=== PATIENT | male | born 1955 | race Caucasian/White ===

== ENCOUNTER → 2020-03-14 11:17 | Outpatient (CLI) | payer OTHER, MEDICARE, SELFPAY ==
[2020-03-14 12:25] LABS: COVID19 -Nasal RAPID Negative (Negative)
== END ==
PROVIDERS: Visit Provider Nurse Practitioner
DX: Z20.822 Contact with and (suspected) exposure to COVID-19 (principal)
CPT/HCPCS: 87635

== ENCOUNTER → 2020-03-16 10:31 | Outpatient (CLI) | payer OTHER, SELFPAY ==
--- NOTE | 2020-03-16 10:41 | DI.NM.S_ITS ---
PROCEDURE: NM SAVITA PERF SPECT REST & STR Rest and exercise myocardial perfusion SPECT with gated imaging and ejection fraction RADIOPHARMACEUTICAL: 24.3 mCi Tc-99m sestamibi IV at rest and 26.3 mCi Tc-99m sestamibi IV at peak exercise. A two day-protocol was performed. INDICATIONS: Atherosclerotic heart disease of [place] coronary TECHNIQUE: Radiopharmaceutical was injected at peak stress test, and also at rest. SPECT images were obtained. SPECT myocardial perfusion images were displayed in short axis, horizontal long axis, and vertical long axis views. Gated images were reviewed using [employer] software. COMPARISON: None. CARDIAC STRESS: A standard Rafael treadmill exercise tolerance test was performed by the patient under the supervision of an attending staff. The patient exercised for 4 minutes and 7 seconds; functional aerobic impairment (ROBERTO) is +46%. Hemodynamic data: There is normal blood pressure and heart rate response to exercise stress. Patient achieved 86% of maximum predicted heart rate at peak exercise. Symptoms: Patient denied chest pain during exercise. EKG: No diagnostic EKG changes of ischemia; frequent PVCs with exercise. FINDINGS: Raw data: There is good myocardial labeling by radiotracer. No significant motion artifacts. Jqdn-fj-ktzpj ratio is 0.32 (normal is less than 0.38 for sestamibi tracer, and less than 0.50 for thallium tracer). Left ventricle function: Gated images demonstrate normal left ventricle wall thickening. No segmental wall motion abnormality. No transient ischemic dilation; TID is 1.05 (normal less than 1.3). The left ventricle resting end-diastolic volume is 110 mL. Left ventricle stress ejection fraction is 70%; normal values are above 45%. Myocardial perfusion: There is normal distribution of activity in the left and right ventricular myocardium. No fixed or reversible perfusion defects. IMPRESSION: Low risk, normal treadmill nuclear stress test. 1) No perfusion evidence of ischemia or infarction. 2) Normal left ventricular size, wall motion, and systolic function (EF post stress 70%). 3) No ECG evidence of ischemia. Frequent PVCs with exercise. 4) No angina during the stuyd. 5) Significantly reduced exercise tolerance (4.6 METs, ROBERTO +46%). Target heart rate achieved. Appropriate BP response to exercise. 6) No prior nuclear stress test available for comparison. Dictated by: Kika Stratton MD on 03/17/2020 at 13:54 Approved by: Kika Stratton MD on 03/17/2020 at 13:57
--- NOTE | 2020-03-16 11:47 | PM.TREADMILL ---
Cardiac Stress Test Report Referral & Results Date Patient Seen: 03/16/20 Time Patient Seen: 11:47 Requesting provider: David Cates Indication: Atherosclerotic heart disease Rest ECG: sinus rhythm Procedure Note: Standard Rafael protocol, 3:39, 4.6 METS Reduced exercise capacity, +46% Normal hemodynamic response to exercise No chest pain or anginal symptoms Occasional PVCs No significant ST changes at peak exercise Impression: normal exercise stress test Please note: Actual ECG tracings can be found in the PACS system.
== END ==
PROVIDERS: Referring Provider Nurse Practitioner; Visit Provider Nurse Practitioner
DX: I25.10 Atherosclerotic heart disease of native coronary artery without angina pectoris (principal)
CPT/HCPCS: 78452; 93017; A9502

== ENCOUNTER 2024-08-21 21:06 | Emergency (ER) | payer OTHER, SELFPAY ==
[2024-08-21 21:13] VITALS: BP 179/85; PULSE 83; RESP 19; TEMP 36.6; O2SAT 96; BMI 47.5
--- NOTE | 2024-08-21 21:25 | DI.RAD.S_ITS ---
PROCEDURE: XR ANKLE LT MIN 3V INDICATIONS: fell, pain TECHNIQUE: 3 views of the ankle were acquired. COMPARISON: None. FINDINGS: Bones: No fractures or dislocations. Ankle mortise is normally aligned. No suspicious bony lesions. Plantar calcaneal enthesophyte. Degenerative changes of the dorsal midfoot and ankle. Soft tissues: No tibiotalar joint effusion. Achilles tendon appears normal. Mild soft tissue swelling overlying the ankle. IMPRESSION: Left ankle without acute fracture or dislocation. If there is persistent clinical concern for occult fracture given adequate mechanism of injury, consider repeat imaging in 10-14 days. Immobilization as clinically indicated. Dictated by: Yobany Hagan M.D. on 08/21/2024 at 23:24 Approved by: Yobany Hagan M.D. on 08/21/2024 at 23:25
--- NOTE | 2024-08-21 21:25 | DI.RAD.S_ITS ---
PROCEDURE: XR KNEE LT 3V INDICATIONS: fell, pain TECHNIQUE: 3 views of the knee were acquired. COMPARISON: None. FINDINGS: Bones: No acute fractures or dislocations. No suspicious bony lesions. Moderate tricompartmental osteoarthrosis of the left knee. Soft tissues: No significant joint effusion. No suspicious soft tissue calcifications. IMPRESSION: No acute bony abnormality or significant effusion. Moderate tricompartmental osteoarthrosis of the left knee. If there are persistent symptoms or clinical suspicion for pathology, then repeat radiographs or advanced imaging (CT or MRI) may be considered for further evaluation. Dictated by: Yobany Hagan M.D. on 08/21/2024 at 23:25 Approved by: Yobany Hagan M.D. on 08/21/2024 at 23:26
[2024-08-22 01:00] VITALS: BP 155/74; PULSE 73; RESP 18; O2SAT 97
--- NOTE | 2024-08-22 01:36 | ED.LOWEXIN ---
HPI - Extremity Injury (Lower) General Chief Complaint: Extremity Injury, Lower Stated Complaint: Fall; L Knee Time Seen by Provider: 08/22/24 01:01 Source: patient and family Mode of arrival: Wheelchair History of Present Illness HPI Narrative: 69-year-old gentleman with a history of diabetes, hypertension, coronary artery disease, anticoagulation, hyperlipidemia, bipolar disorder stepped off high step landing on his left foot with twisting turning type injury to the left knee acute pain and then instability sensation like it would no longer allow him to stand. He has a minor tenderness to the left ankle. He did not actually fall is not complaining of any additional difficulties Related Data Allergies Allergy/AdvReac Type Severity Reaction Status Date / Time Cephalosporins Allergy Severe Anaphylaxis Verified 08/21/24 21:16 promethazine (From Phenergan) Allergy Intermediate ITCHING Verified 08/21/24 21:16 Review of Systems Review of Systems Narrative: Pertinent positive and negative findings as per HPI Patient History Medical History (Updated 08/22/24 @ 01:54 by Macrina Diaz MD) Anticoagulated Hyperlipidemia Diabetes Bipolar disorder Hypertension Smoking Status: Never smoker Exam Initial Vital Signs Initial Vital Signs: Vital Signs Temperature 97.9 F 08/21/24 21:13 Pulse Rate 83 08/21/24 21:13 Respiratory Rate 19 08/21/24 21:13 Blood Pressure 179/85 H 08/21/24 21:13 Pulse Oximetry 96 08/21/24 21:13 Oxygen Delivery Method Room Air 08/21/24 21:13 General: Alert appropriate in no acute distress Respiratory: Able to speak in full sentences, no obvious respiratory distress Skin: No obvious rashes, warm and dry Neurologic: Grossly intact no obvious asymmetries or abnormalities Psych: appropriate insight and affect, cooperative Extremity: Left knee is examined. He has a mild effusion no abrasions or contusions. He has some tenderness along the posterior lateral joint line. No patellar tenderness, no tenderness with anterior cruciate or posterior cruciate testing. No lateral ligamentous pain. Course Orders Ordered: ED Orders 08/21/24 21:25 XR ankle LT min 3V Stat XR knee LT 3V Stat Discontinued Medications Acetaminophen (Acetaminophen 325 Mg Tablet) 975 mg PO NOW ONE Stop: 08/22/24 01:45 Vital Signs Vital signs: Vital Signs - 8 hr 08/21/24 21:13 08/22/24 01:00 Temperature 97.9 F Pulse Rate 83 73 Respiratory Rate 19 18 Blood Pressure 179/85 H 155/74 H Pulse Oximetry 96 97 Oxygen Delivery Method Room Air Room Air MDM - Extremity Injury (Lower) MDM Narrative Medical decision making narrative: CC: Acute knee pain Complicating co-morbidities: Diabetes, hypertension, hyperlipidemia, BMI of 47, bipolar disorder, anticoagulated Data collected from: patient, Medical records reviewed: All care is through [facility], no records are available Differential considered: Fracture, internal derangement of the knee, ligamentous tear, sprain Exam documented above, pertinent findings include: Knee exam has minimal pain to palpation or manipulation mostly along the posterior joint line. Small amount of effusion however significant sense of instability and inability to bear weight. He does not have any significant tenderness over the tibial tubercle to suggest an occult tibial plateau fracture. Left ankle is no longer tender nor swollen Imaging studies independently reviewed: Images of the left knee show no acute bony injury X-ray of the left ankle shows no acute bony injury Treatments: Tylenol Long-leg knee immobilizer is placed by nursing staff. He is neurovascularly intact pre and post placement. With the stabilization his pain is reduced in his stability is more confident. He is also given a walker with instructions in use Discussion: 69-year-old gentleman stepped wrong acute knee pain feels that it is unstable unable to bear weight. Workup is minimally revealing. Possibility of significant ligamentous or meniscal injury is high. No bony abnormalities. He is placed in a knee immobilizer, given a walker . With his baseline instability crutches were going to increase his risk for fall. He declined any narcotic pain medication stated he had a couple of oxycodone at home from a previous dental procedure. He prefers Tylenol alone. We will have him follow up with his primary care physician next week. If he is still having significant pain and instability he likely will benefit from an MRI and orthopedic consultation. Findings reviewed with the patient. There was no indication for additional imaging or hospitalization today and he will be discharged Discharge Plan Departure Patient Disposition: Home Clinical Impression: Injury of knee, left Qualifiers: Encounter type: initial encounter Qualified Code(s): S89.92XA - Unspecified injury of left lower leg, initial encounter Instructions: DI for Knee Sprain, DI for Meniscal Tear Activity Restrictions/Additional Instructions: Thank you for coming in today With the instability and inability to bear weight you clearly have injured her knee. Fortunately I am not seeing any fractures and you do not need to stay in the hospital. I have given you a knee immobilizer and suggested using a walker for stability. Please schedule an appointment with your primary care provider next week. Once the swelling has gone down a bit we can reassess the stability and pain. I suspect you are going to need an outpatient MRI to come to a definitive diagnosis. Please make sure you are using the walker as well as the knee immobilizer so that you do not and up accidentally stepping on the leg having no stability causing further injury and falling. You said you had oxycodone at home that you could use of pain was severe. Other than that you have said the Tylenol as perfectly appropriate. You may find the icing as effective as well If you find that you are getting worse or develop any new symptoms, please feel free to return to the emergency department for further evaluation. Stand Alone Forms: Patient Portal/API
[2024-08-22] MEDS: ACETAMINOPHEN 325 MG TABLET 975 MG PO (02:19)
[2024-08-22 02:20] VITALS: BP 171/81; PULSE 75; RESP 16; O2SAT 98
== END 2024-08-22 02:21 | disposition home or self-care (01) ==
PROVIDERS: Emergency Provider Emergency Medicine
DX: S89.92XA Unspecified injury of left lower leg, initial encounter (principal); X50.1XXA Overexertion from prolonged static or awkward postures, initial encounter
CPT/HCPCS: 73562; 73610; 99283